=== PATIENT | female | born 1995 | race Caucasian/White ===

== ENCOUNTER 2024-11-21 12:40 | Emergency (ER) | payer OTHER ==
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
[2024-11-21 13:57] VITALS: BP 137/88; PULSE 82; RESP 16; TEMP 98.7
== END 2024-11-21 14:06 | disposition home or self-care (01) ==
LOC: EC 12:40
DX: Z04.1 Encounter for examination and observation following transport accident (principal); Z88.8 Allergy status to other drugs, medicaments and biological substances; V49.40XA Driver injured in collision with unspecified motor vehicles in traffic accident, initial encounter
CPT/HCPCS: 99283